=== PATIENT | female | born 1985 | race Caucasian/White ===

== ENCOUNTER 2020-03-13 18:15 | Emergency (ER) | payer MEDICAID ==
[~2020-03-13] VITALS: Ht 160 cm; Wt 67.6 kg
[2020-03-13 18:23] VITALS: Ht 160 cm; Wt 67.6 kg
[2020-03-13 19:24] LABS: microscopic required? YES; urine erythrocyte NEGATIVE (NEGATIVE)
[2020-03-13 19:37] VITALS: BP 106/49
== END 2020-03-13 19:53 | disposition home or self-care (01) ==
LOC: ED 18:15
PROVIDERS: Emergency Medicine
DX: N39.0 Urinary tract infection, site not specified (principal)
CPT/HCPCS: 87491; 87591